=== PATIENT | female | born 1990 | race Hispanic/Latino ===

== ENCOUNTER 2017-11-02 06:03 | Inpatient (IN) | payer OTHER ==
[2017-10-24 12:05] VITALS: BMI 52.7
[2017-11-02] MEDS ORDERED: Lactated Ringer's 1,000 ML IV SCH (06:30)
[2017-11-02] MEDS ORDERED: Lactated Ringer's 1,000 ML IV ONE ×4 (06:30→15:30)
[2017-11-02] MEDS ORDERED: Dexamethasone 4 mg/1 ml IVP ONE (06:30)
[2017-11-02] MEDS ORDERED: Vancomycin 1 gm/NS 200 ml 1 GM/200 ML BAG IVPB ONE (06:30)
[2017-11-02] MEDS ORDERED: Ciprofloxacin 400mg/200ml D5W 400 MG/200 ML BAG IVPB ONE (06:30)
[2017-11-02] MEDS ORDERED: Bupivacaine HCl 0.25% PF (30 ml) Inj ONE ×2 (07:19→07:46)
[2017-11-02] MEDS ORDERED: Midazolam 2 MG/2 ML VIAL ONE (07:46)
[2017-11-02] MEDS ORDERED: Propofol 10 mg/ml Inj (20 ML) ONE (07:46)
[2017-11-02] MEDS ORDERED: Ciprofloxacin 400mg/200ml D5W 0 MG/0 ML BAG IVPB ONE (07:46)
[2017-11-02] MEDS: Vancomycin 1 gm/D5W 200 ml 1 GM/200 ML BAG IVPB ONE ×2 (07:55→08:15)
[2017-11-02] MEDS ORDERED: Dextrose 5%/Lactated Ringer's 1,000 ML IV SCH (09:15)
[2017-11-02] MEDS ORDERED: HYDROmorphone 1 mg/ml ISec IVP STA (09:16)
--- NOTE | 2017-11-02 09:22 | PCM.SURG1 ---
Surgeon's Initial Post Op Note - Surgeon's Notes Surgeon: Gilda Schmitz Furnace Caretaker: Vahid Bacon Type of Anesthesia: General Endo Pre-Operative Diagnosis: Morbid Obesity Operative Findings: Negative leak test, no hiatal hernia Post-Operative Diagnosis: Morbid Obesity Operation Performed: Laparscopic sleeve gastrectomy, TAP block, upper endoscopy Specimen/Specimens Removed: portion of stomach Estimated Blood Loss: EBL {In ML}: 10 Drains Used: No Drains Date of Surgery/Procedure: 11/01/17 Time of Surgery/Procedure: 08:00
[2017-11-02] MEDS ORDERED: HYDROmorphone 0.5 mg/0.5 ml ISec ONE (09:26)
[2017-11-02] MEDS: HYDROmorphone 0.5 mg/0.5 ml ISec IVP PRN ×4 (09:37→19:10)
[2017-11-02] MEDS ORDERED: Morphine 4 MG/ML VIAL IVP STA (10:14)
--- NOTE | 2017-11-02 12:24 | OP ---
PROCEDURE DATE: 11/02/2017 PREOPERATIVE DIAGNOSIS: Morbid obesity. POSTOPERATIVE DIAGNOSIS: Morbid obesity. PROCEDURE PERFORMED: Laparoscopic sleeve gastrectomy, upper endoscopy, and TAP block. SURGEON: Gilda Schmitz MD APPLICATION SUPPORT CONSULTANT: Vahid Bacon MD TYPE OF ANESTHESIA: General. ESTIMATED BLOOD LOSS: Minimal. SPECIMEN: Partial gastrectomy. COMPLICATIONS: There were no complications. INDICATIONS: This is a 26-year-old female with morbid obesity, who meets the NIH criteria for bariatric surgery. DESCRIPTION OF PROCEDURE: The patient was brought to the operating room and placed in supine position on the operating room table. General endotracheal anesthesia was induced by the anesthesia team. A Barron catheter was inserted to decompress the bladder. Precautions were taken to pad the patient well using gel padding in the back, feet, and arms to prevent postoperative pain. The patient was prepped and draped in the usual sterile fashion. The licensed loan officer assistant placed a Veress needle in the left upper quadrant below the costal margin to establish pneumoperitoneum to 15 mmHg. A 12-mm Optiview port along with *-degree laparoscope was inserted in the midline, superior to the umbilicus with no evidence of injury upon entering. Next, the scope was changed to 45 degree and the Veress needle was removed under vision. Under laparoscopic guidance, a transversus abdominis plane block was performed by injecting 3* cc of *.25% Marcaine into multiple sites along the left flank. The solution was injected into the plane between the internal oblique and the transversus abdominis muscles to aid in postoperative analgesia. This procedure was repeated on the right flank for maximum efficacy. A 15-mm trocar was placed in the right midclavicular line above the umbilicus. Additionally, two 5-mm trocars were placed in the right and left flank below the costal margin. All trocars were placed under direct vision. A liver retractor (Chris) was inserted through a separate stab incision 1 cm below the xiphoid process and was attached to a retracting device secured to the left side of the table. The entire procedure was performed laparoscopically. The primary surgeon operated from the right side of the patient and the licensed loan officer assistant operated from the left side of the patient. The lesser sac was entered by first dividing the gastrocolic ligament along the midpoint of the greater curvature of the stomach with a harmonic scalpel. The dissection was performed close to the stomach to avoid the gastroepiploic artery. Dissection proceeded proximally toward the angle of His. The licensed loan officer assistant dissected out and ligated the short gastric arteries with the harmonic scalpel. Care was taken to avoid injury to the spleen. We then returned to the point, where the dissection began more distally on the greater curvature. The licensed loan officer assistant used the Harmonic scalpel and continued distally along the greater curvature to approximately 4 to 6 cm from the pylorus. At this point, a 4*-British bougie was inserted by the anesthesia team and was aligned medially and passed under vision to the region of the pylorus. The licensed loan officer assistant grasped the greater curvature of the stomach with a loop grasper and retracted laterally. The sleeve gastrectomy was performed using sequential firings of a 6*-mm Endo JASON stapler ([employer]). For the initial two firings, a green load was used where the stomach tissue was thicker. The remaining firings were done using gold and blue loads. Care was taken to avoid narrowing the distal aspect of the sleeve. The anterior and posterior vagus nerves were identified and preserved throughout their course. Sequential firings of the stapler continued up to the angle of His. Care was taken to ensure equal tension along the entire staple line to prevent kinking of the sleeve. The entire staple line was reinforced with SeamGuard buttressing material to help reduce the chance of bleeding or a leak. An upper endoscopy was performed (to be dictated separately) in order to evaluate the gastric mucosa as well as perform a leak test. The distal stomach was occluded and the upper abdomen was filled with saline solution in order to submerge the entire staple line. Air was insufflated and no bubbles were visualized. The saline was suctioned off and the scope removed. The resected stomach was placed in a large EndoCatch bag for later removal. The area was carefully inspected and hemostasis ensured. The fascia of the 15-mm port site was closed using * Vicryl interrupted suture on the Endoclose device. The liver retractor and all ports were removed under vision and pneumoperitoneum evacuated. The specimen was removed through the 15-mm port site and was sent off the field. The skin on all port sites was closed with 4-* Monocryl subcuticular sutures followed by Dermabond for dressing. All sponge and instruments counts were correct at the end of the procedure. The patient tolerated the procedure well, was extubated in the operating room and was transferred to the recovery room in stable condition. Gilda Schmitz MD
[2017-11-02 20:32] VITALS: RESP 20
[2017-11-03] MEDS: HYDROmorphone 0.5 mg/0.5 ml ISec IVP PRN ×2 (01:22→10:18)
[2017-11-03] MEDS: Lactated Ringer's 1,000 ML IV SCH ×2 (05:39→13:43)
[2017-11-03 06:40] LABS: BASO % 0.2 % (0.0-2.0); EOS % 0.1 % (0.0-4.0); HEMOGLOBIN 11.7 g/dL (11.0-16.0); LYMPH # 1.5 K/uL (1.0-4.3); LYMPH % 18.5 % (20.0-40.0); MEAN CORPUSCULAR HEMOGLOBIN 29.3 pg (27.0-31.0); MEAN PLATELET VOLUME 9.4 fL (7.2-11.7); MONO # 0.6 K/uL (0.0-0.8); MONO % 7.3 % (0.0-10.0); NEUT % 73.9 % (50.0-75.0); NRBC % 0.1 % (0.0-2.0); RED CELL DISTRIBUTION WIDTH 14.5 % (11.5-14.5); WHITE BLOOD COUNT 8.2 K/uL (4.8-10.8)
[2017-11-03 06:54] LABS: BLOOD UREA NITROGEN 8 mg/dL (7-17); CALCIUM 8.5 mg/dl (8.6-10.4); GFR AFRICAN-AMERICAN > 60; GFR NON-AFRICAN AMERICAN > 60
[2017-11-03] MEDS ORDERED: Iohexol 240 200 ML ONE (09:12)
[2017-11-03] MEDS ORDERED: Barium Sulfate Susp 0.1% w/v, 0.1% w/w 450 mL Bottle PO ONE (09:13)
[2017-11-03] MEDS ORDERED: Enoxaparin 40 mg Syringe SC SCH (10:00)
--- NOTE | 2017-11-03 10:53 | RAD ---
PROCEDURE: Limited upper GI series HISTORY: s/p sleeve gastrectomy rule out leak or obstructio COMPARISON: None available TECHNIQUE: An upper GI series was performed in a limited fashion for evaluation of immediate postoperative gastric sleeve procedure. Swelling of oral contrast material was monitored fluoroscopically. Examination with water-soluble contrast was followed by examination with low-density barium suspension. FINDINGS: The gastric lumen is narrowed, status post gastric sleeve procedure. There is no hiatal hernia. There is no evidence of extravasation. There is no evidence of obstruction. Contrast material is rapidly visualized within the duodenum and proximal jejunum. IMPRESSION: No evidence extravasation status post gastric sleeve procedure.
--- NOTE | 2017-11-03 14:18 | CP.PCM.PN ---
Subjective - Date & Time of Evaluation Date of Evaluation: 11/03/17 Time of Evaluation: 07:00 - Subjective Subjective: General Surgery Progress Note for Dr. Schmitz This 26F was seen and examined this Am at bedside reports no acute events ovenright. She reports that her gas pain is getting better. She denies any nausea vomiting chest pain diarrhea. Objective - Vital Signs/Intake and Output Vital Signs (last 24 hours): Temp Pulse Resp BP Pulse Ox 98.1 F 76 20 123/79 97 11/03/17 08:14 11/03/17 08:14 11/03/17 08:14 11/03/17 08:14 11/03/17 08:14 - Medications Medications: Current Medications Enoxaparin Sodium (Lovenox) 40 mg SC DAILY [facility] Last Admin: 11/03/17 10:47 Dose: 40 mg Hydromorphone HCl (Dilaudid) 1 mg IVP Q4H PRN PRN Reason: Pain, severe (8-10) Last Admin: 11/03/17 10:18 Dose: 1 mg Lactated Ringer's (Lactated Ringer's) 1,000 mls @ 150 mls/hr IV .Q6H40M [facility] Last Admin: 11/03/17 13:43 Dose: Not Given Ketorolac Tromethamine (Toradol) 30 mg IVP Q6H [facility] Stop: 11/04/17 10:31 Last Admin: 11/03/17 11:30 Dose: Not Given Ondansetron HCl (Zofran Inj) 4 mg IVP Q6 [facility] Last Admin: 11/03/17 13:55 Dose: 4 mg - Labs Labs: 11/03/17 06:28 11/03/17 06:28 - Constitutional Appears: Non-toxic, No Acute Distress - Head Exam Head Exam: ATRAUMATIC, NORMOCEPHALIC - Eye Exam Eye Exam: EOMI - ENT Exam ENT Exam: Mucous Membranes Moist - Respiratory Exam Respiratory Exam: NORMAL BREATHING PATTERN - Cardiovascular Exam Cardiovascular Exam: +S1, +S2 - GI/Abdominal Exam GI & Abdominal Exam: Soft. absent: Guarding, Rigid, Tenderness Additional comments: Inscisions well aproximated non erythematous non draining Assessment and Plan - Assessment and Plan (Free Text) Assessment: 26F POD1 s/p lap sleeve and doing well UGI serieas shows no extravasation bariatric clears pain control OOB to chair D/W Dr. Ainsley Tripathi PGY2
--- NOTE | 2017-11-03 15:42 | CP.PCM.CON ---
History of Present Illness - History of Present Illness History of Present Illness: Patient doing well overnight. No problems Past Patient History - Past Medical History & Family History Past Medical History?: Yes - Past Social History Smoking Status: Never Smoked - PULMONARY Hx Sleep Apnea: (S/P SLEEP STUDY NOT YET RESULTED) - HEENT Hx HEENT Problems: Yes (CONTACTS/GLASSES) - MUSCULOSKELETAL/RHEUMATOLOGICAL Hx Musculoskeletal Disorders: Yes Hx Falls: No Other/Comment: RT FOOT PLANTAR FASCIATIS - PSYCHIATRIC Hx Psychophysiologic Disorder: Yes Hx Anxiety: Yes Hx Depression: Yes Hx Substance Use: No - SURGICAL HISTORY Hx Surgeries: Yes Other/Comment: WISDOM TEETH EXTRACTED - ANESTHESIA Hx Anesthesia: Yes Hx Anesthesia Reactions: No Hx Malignant Hyperthermia: No Has any member of the family had a problem w/ anesthesia?: No Meds Allergies/Adverse Reactions: Allergies Allergy/AdvReac Type Severity Reaction Status Date / Time Penicillins Allergy Intermediate RASH Verified 10/24/17 12:05 - Medications Medications: Current Medications Enoxaparin Sodium (Lovenox) 40 mg SC DAILY [facility] Last Admin: 11/03/17 10:47 Dose: 40 mg Hydromorphone HCl (Dilaudid) 1 mg IVP Q4H PRN PRN Reason: Pain, severe (8-10) Last Admin: 11/03/17 10:18 Dose: 1 mg Lactated Ringer's (Lactated Ringer's) 1,000 mls @ 150 mls/hr IV .Q6H40M [facility] Last Admin: 11/03/17 13:43 Dose: Not Given Ketorolac Tromethamine (Toradol) 30 mg IVP Q6H [facility] Stop: 11/04/17 10:31 Last Admin: 11/03/17 11:30 Dose: Not Given Ondansetron HCl (Zofran Inj) 4 mg IVP Q6 [facility] Last Admin: 11/03/17 13:55 Dose: 4 mg Physical Exam - GI/Abdominal Exam Additional comments: would c/d/i Results - Vital Signs Recent Vital Signs: Last Vital Signs Temp 98.1 F 11/03/17 08:14 Pulse 76 11/03/17 08:14 Resp 20 11/03/17 08:14 BP 123/79 11/03/17 08:14 Pulse Ox 97 11/03/17 08:14 - Labs Result Diagrams: 11/03/17 06:28 11/03/17 06:28 Labs: Laboratory Results - last 24 hr 11/03/17 11/03/17 06:28 06:28 WBC 8.2 D RBC 4.00 Hgb 11.7 Hct 34.4 MCV 86.0 MCH 29.3 MCHC 34.0 RDW 14.5 Plt Count 194 MPV 9.4 Neut % (Auto) 73.9 Lymph % (Auto) 18.5 L Ralls % (Auto) 7.3 Eos % (Auto) 0.1 Baso % (Auto) 0.2 Neut # (Auto) 6.0 Lymph # (Auto) 1.5 Ralls # (Auto) 0.6 Eos # (Auto) 0.0 Baso # (Auto) 0.0 Sodium 141 Potassium 4.3 Chloride 105 Carbon Dioxide 28 Anion Gap 13 BUN 8 Creatinine 0.6 L Est GFR ( Amer) > 60 Est GFR (Non-Af Amer) > 60 Random Glucose 94 Calcium 8.5 L Assessment/Plan - Assessment and Plan (Free Text) Assessment: s/p Lap Sleeve gastrectomy stable Plan: start clears after normal UGI DVT prophy OOB and ambulate
--- NOTE | 2017-11-03 15:50 | CP.PCM.DIS ---
Provider - Provider Date of Admission: 11/02/17 06:03 Attending physician: Gilda Schmitz MD Time Spent in preparation of Discharge (in minutes): 35 Diagnosis - Discharge Diagnosis (1) Morbid obesity Status: Chronic (2) S/P laparoscopic sleeve gastrectomy Status: Acute Hospital Course - Lab Results Lab Results: Most Recent Lab Values WBC 8.2 K/uL (4.8-10.8) D 11/03/17 06:28 RBC 4.00 Mil/uL (3.80-5.20) 11/03/17 06:28 Hgb 11.7 g/dL (11.0-16.0) 11/03/17 06:28 Hct 34.4 % (34.0-47.0) 11/03/17 06:28 MCV 86.0 fL (81.0-99.0) 11/03/17 06:28 MCH 29.3 pg (27.0-31.0) 11/03/17 06:28 MCHC 34.0 g/dL (33.0-37.0) 11/03/17 06:28 RDW 14.5 % (11.5-14.5) 11/03/17 06:28 Plt Count 194 K/uL (130-400) 11/03/17 06:28 MPV 9.4 fL (7.2-11.7) 11/03/17 06:28 Neut % (Auto) 73.9 % (50.0-75.0) 11/03/17 06:28 Lymph % (Auto) 18.5 % (20.0-40.0) L 11/03/17 06:28 Sutton % (Auto) 7.3 % (0.0-10.0) 11/03/17 06:28 Eos % (Auto) 0.1 % (0.0-4.0) 11/03/17 06:28 Baso % (Auto) 0.2 % (0.0-2.0) 11/03/17 06:28 Neut # (Auto) 6.0 K/uL (1.8-7.0) 11/03/17 06:28 Lymph # (Auto) 1.5 K/uL (1.0-4.3) 11/03/17 06:28 Sutton # (Auto) 0.6 K/uL (0.0-0.8) 11/03/17 06:28 Eos # (Auto) 0.0 K/uL (0.0-0.7) 11/03/17 06:28 Baso # (Auto) 0.0 K/uL (0.0-0.2) 11/03/17 06:28 Sodium 141 mmol/L (132-148) 11/03/17 06:28 Potassium 4.3 mmol/L (3.6-5.2) 11/03/17 06:28 Chloride 105 mmol/L (98-107) 11/03/17 06:28 Carbon Dioxide 28 mmol/L (22-30) 11/03/17 06:28 Anion Gap 13 (10-20) 11/03/17 06:28 BUN 8 mg/dL (7-17) 11/03/17 06:28 Creatinine 0.6 mg/dL (0.7-1.2) L 11/03/17 06:28 Est GFR ( Amer) > 60 11/03/17 06:28 Est GFR (Non-Af Amer) > 60 11/03/17 06:28 Random Glucose 94 mg/dL (65-105) 11/03/17 06:28 Calcium 8.5 mg/dl (8.6-10.4) L 11/03/17 06:28 Blood Type A POSITIVE 11/02/17 06:42 Antibody Screen Negative 11/02/17 06:42 - Hospital Course Hospital Course: Pateint was admitted on 11/02/17 for an elective laparoscopic sleeve gastrectomy for morbid obesity. She handled the procedure well. On 11/03/17 patient had an upper GI series which was negative for leaks. She drank approximately 100cc of fluids without any issues. Patient is clear for discharge home with followup on 11/09/17 Discharge Exam - Head Exam Head Exam: ATRAUMATIC, NORMOCEPHALIC - Eye Exam Eye Exam: EOMI - Respiratory Exam Respiratory Exam: NORMAL BREATHING PATTERN - Cardiovascular Exam Cardiovascular Exam: +S1, +S2 - GI/Abdominal Exam GI & Abdominal Exam: Soft. absent: Distended, Firm, Guarding, Hernia Additional comments: Wounds well aproximated non erythematous non draining. Mild inscsional tenderness at site of umbilical inscsion - Neurological Exam Neurological exam: Alert, Oriented x3 - Psychiatric Exam Psychiatric exam: Normal Affect, Normal Mood - Skin Skin Exam: Dry, Intact Discharge Plan - Follow Up Plan Condition: GOOD Disposition: HOME/ ROUTINE Instructions: Vertical Sleeve Gastrectomy, Laparoscopic Surgery Additional Instructions: OK to shower today, no heavy lifting 4 weeks, liquid diet per instructions from Dr. Bacon. Followup on 11/09/17
[2017-11-03 16:50] VITALS: BP 120/74; PULSE 84; TEMP 98; O2SAT 98
== END 2017-11-03 17:03 | disposition home or self-care (01) | DRG 621 ==
LOC: C.9S 06:03 → C.6T 20:23
PROVIDERS: ADMIT Surgery; ATTEND Surgery
PROC: 0DB64Z3 Excision of Stomach, Percutaneous Endoscopic Approach, Vertical (ICD-10-PCS; principal; 2017-11-02 07:45)
PROC: 0DJ08ZZ Inspection of Upper Intestinal Tract, Via Natural or Artificial Opening Endoscopic (ICD-10-PCS; 2017-11-02 07:45)
DX: E66.01 Morbid (severe) obesity due to excess calories (principal); Z68.43 Body mass index [BMI] 50.0-59.9, adult; G47.30 Sleep apnea, unspecified; F41.9 Anxiety disorder, unspecified; F32.9 Major depressive disorder, single episode, unspecified